=== PATIENT | female | born 1970 | race Caucasian/White ===

== ENCOUNTER 2019-10-01 16:27 | Outpatient (CLI) | payer BC ==
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
== END 2019-10-01 16:28 | disposition home or self-care (01) ==
LOC: RAD-FRANK 16:27
PROVIDERS: ATTEND Nurse Practitioner Family
DX: V89.2XXD Person injured in unspecified motor-vehicle accident, traffic, subsequent encounter (principal)

== ENCOUNTER 2020-08-07 13:31 | Outpatient (CLI) | payer BC | END 2020-08-07 13:32 | disposition home or self-care (01) | LOC: BICMAMMO 13:31 | PROVIDERS: ATTEND Nurse Practitioner Family | DX: Z12.31 Encounter for screening mammogram for malignant neoplasm of breast (principal); Z80.3 Family history of malignant neoplasm of breast | CPT/HCPCS: 77063; 77067 ==

== ENCOUNTER 2020-08-27 13:40 | Outpatient (CLI) | payer BC | END 2020-08-27 13:41 | disposition home or self-care (01) | LOC: BICMAMMO 13:40 | PROVIDERS: ATTEND Nurse Practitioner Family | DX: R92.2 Inconclusive mammogram (principal) | CPT/HCPCS: G0279 ==